=== PATIENT | male | born 1980 | race Caucasian/White ===

== ENCOUNTER 2019-08-31 07:55 | Day surgery (SDC) | payer BC ==
--- NOTE | 2019-08-11 09:21 | HP ---
DATE OF ADMISSION: 08/31/2019 REFERRING PHYSICIAN: Mike Wong MD REFERRAL: Complex, chronic incarcerated ventral hernia. BRIEF HISTORY AND MANAGEMENT: This is a 39-year-old gentleman who has a 3-year history of having a known chronically incarcerated ventral hernia. Over this time course, the hernia has gotten larger, and now he has a much larger protrusion that is visible through the shirt. Patient states the hernia causes him discomfort at times, and now he wishes to have this repaired. He has had no nausea, no vomiting, no change in bowel habits. PAST MEDICAL HISTORY: Significant for skin issues. He has no coronary artery disease, hypertension, or diabetes. PAST SURGICAL HISTORY: None. MEDICATIONS: Lamisil. ALLERGIES: None. SOCIAL HISTORY: He does not smoke nor drink. No history of drug use. PHYSICAL EXAMINATION: The abdomen is soft, nontender, and nondistended. He has an upper midline diastasis. He has a large, chronically incarcerated ventral hernia noted in the midline. The defects are not truly appreciated due to its chronically incarcerated nature. The skin overlying the hernia is not thin. The hernia is not tender. IMPRESSION AND PLAN: Chronically incarcerated ventral hernia. This is a 39- year-old gentleman with a chronically incarcerated ventral hernia that is causing him discomfort. We have discussed the various surgical approaches such as open, laparoscopic, and robotic as well as the different type of meshes and where the mesh is to be placed. Patient is scheduled for an open ventral hernia repair with mesh and a component separation as needed to place the mesh in a nice retrorectus location. The indications, alternatives, and complications were discussed. Questions answered. We will plan to obtain written consent the day of surgery. Dimas DIXON [id number] cc: MIKE WONG MD MTDD
[2019-08-30 16:06] VITALS: BMI 28.8
[2019-08-31] MEDS ORDERED: TAMSULOSIN HCL 0.4 MG CAP ONE (08:10)
[2019-08-31] MEDS ORDERED: CLINDAMYCIN PHOSPHATE 600 MG/4 ML VIAL ONE (08:10)
[2019-08-31] MEDS ORDERED: ceFAZolin SODIUM 1 GM VIAL ONE ×2 (08:11→08:29)
[2019-08-31] MEDS ORDERED: TAMSULOSIN HCL 0.4 MG CAP PO ONE (08:15)
[2019-08-31] MEDS ORDERED: DEXAMETHASONE SOD PHOSPHATE 4 MG/1 ML VIAL ONE (08:29)
[2019-08-31] MEDS ORDERED: LIDOCAINE HCL/PF 2% SDV 5ML VIAL ONE (08:29)
[2019-08-31] MEDS ORDERED: ONDANSETRON 4 MG/2 ML VIAL ONE (08:29)
[2019-08-31] MEDS ORDERED: KETOROLAC TROMETHAMINE 30 MG/1 ML VIAL ONE ×2 (08:29→08:33)
[2019-08-31] MEDS ORDERED: PROPOFOL 20 ML ONE ×2 (08:30→11:44)
[2019-08-31] MEDS ORDERED: SUCCINYLCHOLINE CHLORIDE 200 MG/10 ML SYRINGE ONE (08:38)
[2019-08-31] MEDS ORDERED: VECURONIUM BROMIDE 10 MG VIAL ONE (08:57)
[2019-08-31] MEDS ORDERED: ROPIVACAINE HCL 0.5% 30ML VIAL ONE (09:41)
[2019-08-31] MEDS ORDERED: MIDAZOLAM HCL 2 MG/2 ML SINGLE DOSE VIAL ONE ×2 (09:42)
[2019-08-31] MEDS ORDERED: KETAMINE HCL 200 MG/20 ML VIAL ONE (09:42)
[2019-08-31] MEDS ORDERED: ROCURONIUM BROMIDE 50 MG/5 ML SYRINGE ONE (10:17)
[2019-08-31] MEDS ORDERED: ceFAZolin 2 GRAM PREMIX BAG IVPB ONE (10:27)
[2019-08-31] MEDS ORDERED: NEOSTIGMINE METHYLSULFATE 0.5 MG/1 ML - 10 ML MDV ONE (11:00)
[2019-08-31] MEDS ORDERED: GLYCOPYRROLATE 0.2 MG/1 ML VIAL ONE ×2 (11:00→11:46)
[2019-08-31] MEDS ORDERED: oxyCODONE HCL 5 MG TABLET PO PRN ×3 (12:30→16:11)
[2019-08-31] MEDS ORDERED: ONDANSETRON 4 MG/2 ML VIAL IVPUSH PRN (12:30)
[2019-08-31] MEDS ORDERED: LACTATED RINGERS SOLUTION 1,000 ML IV SCH (12:30)
--- NOTE | 2019-08-31 13:04 | OP ---
DATE OF OPERATION: 08/31/2019 PREOPERATIVE DIAGNOSIS: Complex chronically incarcerated ventral hernia. POSTOPERATIVE DIAGNOSIS: Complex chronically incarcerated ventral hernia. PROCEDURE: Open bilateral component separation, repair of complex chronically incarcerated ventral hernia with mesh, lavage, partial omentectomy. SURGEON: Tyson Bertrand MD ACCOUNTS PAYABLE TECHNICIAN: Kamran Rivera MD ANESTHESIA: Dimitris Pond DO, (general). ESTIMATED BLOOD LOSS: Minimal. SPECIMEN: Portion of omentum. INDICATION FOR PROCEDURE: This is a 31-year-old gentleman with over a 3-year history of having a chronically incarcerated ventral hernia. It has gotten larger, and now he has discomfort in the area. He wishes to have this repaired. DESCRIPTION OF PROCEDURE: Patient identified and appropriately positioned on the operating room table. After placement on general anesthesia, the abdomen was prepped and draped in the usual sterile fashion with ChloraPrep. A midline incision was made and deepened through subcutaneous tissue. The hernia dissected free from this dermis of the skin down to the level of the fascia. The hernia was subsequently opened. It contained omentum that was incarcerated in the hernia sac. The defect was greater than that of a half dollar and, therefore, decision was made to make a bilateral component separation. The retrorectus space on the patient's right side was entered by dividing the posterior sheath on the right side. The muscles were then off the posterior sheath with blunt dissection and was taken down laterally. At the junction of the rectus obliques and transversus, the fascia was subsequently scored the transversus, and the myofascial separation ensued approximately 5 inches above and below the actual defect. This allowed mobilization of the transversus medially in a non-tensioned fashion. A similar approach was used on the left side as well. The posterior left rectus sheath space was entered by dividing the posterior sheath. The muscle was off the posterior sheath with blunt dissection, and it was taken out laterally to again the junction just medial to the perforating vessels. The fascia was subsequently scored, and the myofascial separation of the transversus was done from the obliques and the rectus junction, and it was taken 5 inches above and below the actual defect as well. Next the transversus was then subsequently reapproximated in the midline with a running locking 3-0 Maxon suture. A large 15 x 15 ProGrip, as well as a 6 x 10 piece of BO Bio, was used for the operative repair. The 2 pieces of mesh were sewn together in a hybrid fashion. BO Bio was placed on the transversus side, and the ProGrip was placed along the undersurface of the rectus space and muscle. The ProGrip was subsequently anchored with the AbsorbaTack. The mesh was irrigated. The operative field noted to be hemostatic. The midline fascia reapproximated with a running 0 PDS suture. The subcutaneous space was irrigated, and the skin closed with marcelo followed by Dermabond. At the conclusion of this case, sponge and instrument counts were correct. ATTESTATION: A brief operative note was handwritten on the preprinted form. A portion of the omentum was excised during entering the sac since it was a slider, and the omentum was serially clamped, divided, and tied with 3-0 Vicryl suture and the portion of omentum handed off as specimen. Dimas DIXON [id number] cc: Mike Chairez MD
[2019-08-31] MEDS ORDERED: ACETAMINOPHEN 325 MG TABLET (FP) PO PRN (16:11)
[2019-08-31] MEDS: D5-1/2NS+20 MEQ KCL - 20 MEQ/1,000 ML INFUS.BAG IV SCH (18:11)
[2019-08-31] MEDS: oxyCODONE HCL 5 MG TABLET PO PRN (21:09)
[2019-08-31] MEDS: FAMOTIDINE 20 MG/50 ML IVPB 20 MG/50 ML MG IVPB SCH (21:09)
[2019-08-31] MEDS: ACETAMINOPHEN 325 MG TABLET (FP) PO PRN (21:10)
[2019-08-31] MEDS ORDERED: FAMOTIDINE 20 MG/50 ML IVPB 20 MG/50 ML MG IVPB SCH (22:00)
[2019-09-01] MEDS: D5-1/2NS+20 MEQ KCL - 20 MEQ/1,000 ML INFUS.BAG IV SCH (00:58)
[2019-09-01 06:14] VITALS: TEMP 98.1
[2019-09-01] MEDS: ACETAMINOPHEN 325 MG TABLET (FP) PO PRN (08:40)
[2019-09-01] MEDS: oxyCODONE HCL 5 MG TABLET PO PRN (08:40)
[2019-09-01] MEDS: FAMOTIDINE 20 MG/50 ML IVPB 20 MG/50 ML MG IVPB SCH ×2 (08:46→09:00)
[2019-09-01] MEDS ORDERED: ENOXAPARIN NA (PORCINE) 40 MG/0.4 ML DISP.SYRIN SQ SCH ×2 (10:00→12:45)
[2019-09-01 10:23] VITALS: BP 117/62; PULSE 73
[2019-09-01] MEDS ORDERED: FAMOTIDINE 20 MG/50 ML IVPB 20 MG/50 ML MG IVPB SCH (12:45)
--- NOTE | 2019-09-05 17:27 | PATH ---
Surgical Pathology Report Patient Name: LEXI GILLETTE [facility]. Rec. #: [id number] /Age/Gender: 1980 (Age: 39) / M Account: <[id number]> Location: [facility] Taken: 08/31/2019 Received: 08/31/2019 Reported: 09/05/2019 Physicians: Tyson Bertrand Specimen(s) Received PORTION OF OMENTUM AND HERNIA SAC Clinical History Ventral hernia with obstruction, without gangrene Final Diagnosis PORTION OF OMENTUM AND HERNIA SAC, EXCISION: CONSISTENT WITH HERNIA SAC AND PORTION OF OMENTUM. Electronically Signed Ingrid Spencer M.D. Gross Description Received in formalin labeled "portion of omentum and hernia sac," is a 4.2 x 3.0 x 2.1 cm tolliver-jc portion of fibromembranous tissue with attached fat, consistent with a hernia sac. Thermal Surfacing Machine Operator sections are submitted in one cassette. /09/01/2019 saudi09/01/2019
== END 2019-09-01 12:34 | disposition home or self-care (01) ==
LOC: JASUSAT 07:55 → JASU-SURG 07:55 → JSAMEDAYSX 12:06 → UNDOADMIN 12:06 → JSAMEDAYSX 14:28 → J6S 14:28 → UNDODISIN 09-01 12:34 → JASUSAT 09-01 12:34
PROVIDERS: ATTEND Surgery
PROC: 0WUF0JZ Supplement Abdominal Wall with Synthetic Substitute, Open Approach (ICD-10-PCS; principal; 2019-08-31 10:00)
DX: K43.6 Other and unspecified ventral hernia with obstruction, without gangrene (principal)
CPT/HCPCS: 94760

== ENCOUNTER 2024-05-24 13:51 | Emergency (ER) | payer BC ==
[2024-05-24 13:56] VITALS: TEMP 98.4; BMI 29.2
[2024-05-24 15:19] LABS: BASO % 0.8 % (0-2.0); EOS % 2.7 % (0-4.5); HEMATOCRIT 47.3 % (35.4-49); HEMOGLOBIN 16.1 GM/dL (11.7-16.9); LYMPH % 27.1 % (8-40); MCH 29.3 pg (25.7-33.7); MCHC 33.9 g/dl (32.0-35.9); MEAN CELL VOLUME 86.3 fl (80-96); MEAN PLT VOLUME 8.3 fl (7.5-11.1); NEUT % 62.4 % (42.8-82.8); PLATELET COUNT 361 10^3/uL (134-434); RBC 5.49 M/mm3 (4.00-5.60); WHITE BLOOD COUNT 6.6 K/mm3 (4.0-10.0)
[2024-05-24] MEDS ORDERED: ACETAMINOPHEN INJECTION 100 ML IVPB ONE (15:23)
[2024-05-24 15:26] LABS: INR 0.97 (0.83-1.09); PROTHROMBIN TIME (PATIENT) 11.2 SEC (9.7-13.0)
[2024-05-24 15:29] LABS: ACTIVATED PTT 31.3 SECONDS (25.2-36.5)
[2024-05-24] MEDS: LACTATED RINGERS SOLUTION 1000 ML INFUS.BAG IV ONE (15:32)
[2024-05-24] MEDS: ACETAMINOPHEN 1000 MG/100 ML BAG IVPB ONE (15:33)
[2024-05-24 15:39] LABS: POTASSIUM 4.4 mmol/L (3.5-5.1)
[2024-05-24 15:41] LABS: CALCIUM 9.2 mg/dL (8.5-10.1)
[2024-05-24 15:42] LABS: ALBUMIN 3.7 g/dl (3.4-5.0); MAGNESIUM 2.1 mg/dL (1.8-2.4)
[2024-05-24 15:45] LABS: CREATININE 1.2 mg/dL (0.55-1.3)
[2024-05-24 15:46] LABS: BILIRUBIN,TOTAL 0.5 mg/dL (0.2-1); TOT PROT 7.5 g/dl (6.4-8.2)
[2024-05-24 17:10] VITALS: BP 132/82; PULSE 75; RESP 17
== END 2024-05-24 17:16 | disposition home or self-care (01) ==
LOC: JER 13:51
PROC: 3E033NZ Introduction of Analgesics, Hypnotics, Sedatives into Peripheral Vein, Percutaneous Approach (ICD-10-PCS; principal; 2024-05-24)
DX: R07.89 Other chest pain (principal); R00.2 Palpitations; R00.0 Tachycardia, unspecified
CPT/HCPCS: 36415; 71045-TC-FY; 80053; 83735; 84484; 85025; 85379; 85610; 85730; 93005; 93010; 99285-25; J0131